=== PATIENT | female | born 1955 | race Two or more races ===

== ENCOUNTER 2019-07-11 13:29 | Emergency (ER) | payer OTHER ==
[~2019-07-11] VITALS: Ht 160 cm; Wt 70.8 kg
[2019-07-11 13:41] VITALS: BP 132/72
--- NOTE | 2019-07-11 13:56 | Emergency Room Report ---
History of Present Illness General Chief Complaint: Head Injury Source: Patient Present Illness HPI Patient is a 63-year-old female presents after being hit in the head with a soccer ball. She reports being dazed. Reports feeling somewhat confused after being hit to the head. Injury occurred approximately 2 hours prior to arrival. Denies any fall. She denies any loss of consciousness. Did not take anticoagulation. Has not vomiting or having any weakness to her extremities. Denies any neck pain. 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 Allergies: Coded Allergies: No Known Allergies (Unverified , 07/11/19) Patient History Past Medical History: see triage record Reviewed Nursing Documentation: PMH: Agreed; PSxH: Agreed Nursing Documentation-PMH Past Medical History: No History, Except For Hx Cardiac Problems: No Hx Hypertension: Yes Hx Pacemaker: No Hx Asthma: No Hx COPD: No Hx Diabetes: No Hx Cancer: No Hx Gastrointestinal Problems: No Hx Dialysis: No History Of Psychiatric Problem: No Hx Neurological Problems: No Hx Cerebrovascular Accident: No Hx Seizures: No Review of Systems All Other Systems: negative except mentioned in HPI Physical Exam Vital Signs Date Time Temp Pulse Resp B/P (MAP) Pulse Ox O2 Delivery O2 Flow Rate FiO2 07/11/19 13:41 98.1 79 16 132/72 (92) 99 Room Air General Appearance: well appearing, no apparent distress, alert, GCS 15 Head: normocephalic, atraumatic ENT: hearing grossly normal, normal pharynx, normal voice Neck: full range of motion, supple Respiratory: no respiratory distress, speaking full sentences Cardiovascular #1: normal inspection Gastrointestinal: normal inspection, soft Musculoskeletal: normal inspection, no calf tenderness Neurologic: alert, motor strength/tone normal, vehicle care specialist III-XII nml as tested, oriented x3, normal gait Psychiatric: normal inspection, mood/affect normal Skin: normal inspection, no rash Medical Decision Making ER Course Patient presented for minor head injury. Differential diagnosis includes is not limited to fracture, intracranial hemorrhage, contusion, among others. CT imaging was ordered due to patient's recent head injury. She is not currently taking any anticoagulation and is currently at her baseline mental status. She reports having taken ibuprofen for headache and does not have any headache at this time. Last Vital Signs Date Time Temp Pulse Resp B/P (MAP) Pulse Ox O2 Delivery O2 Flow Rate FiO2 07/11/19 13:41 98.1 79 16 132/72 (80) 99 Room Air Status: improved Disposition: HOME, SELF-CARE Condition: Stable Paul Lizama MD Jul 11, 2019 13:56
[2019-07-11] MEDS ORDERED: ONDANSETRON ODT4 MG BC (13:59)
--- NOTE | 2019-07-11 14:00 | NUR ---
ED Nurse Note: Patient presents to ER due to head injury; patient was standing in the soccer field and hit by soccer ball and lost consciouness for sec. Patient regained consciousness spontaneously. Patient reports no fall injury as she leaned against the pole and got to the ground. Reports no N/V or dizziness or changes in her speech or behavior. Patient awake, alert, oriented x 4. Regular, unlabored breathing noted. Ambulating to the room with steady gait.
[2019-07-11 14:10] VITALS: BP 134/75
--- NOTE | 2019-07-11 14:15 | NUR ---
ED Nurse Note: PATIENT IS BEING DISCHARGED FROM MEDICAL CARE. D/C INSTRUCTION AND PRESCRIPTION GIVEN TO PATIENT. ALL QUESTIONS WERE ANSWERED. PATIENT AMBULATED OUT WITH STEADY GAIT.
--- NOTE | 2019-07-11 14:40 | Diagnostic Imaging Report ---
Indication: Headache Technique: Contiguous 5 mm thick transaxial imaging of the head obtained in a Siem[employer] Sensation [address] scanner. Soft tissue and bone windows generated. Automatic Exposure Control was utilized. Total Dose length Product (DLP): 1300.[address] Dose Index Volume (CTDIvol): 62.7 mGy Comparison: none Findings: The size and configuration of the cortical sulci, basal cisterns, and ventricles are within normal limits for age. There is no mass effect, midline shift, or edema identified. There is no evidence of acute hemorrhage or abnormal intra-axial or extra-axial fluid collections. The bones and soft tissues are unremarkable. Impression: No mass effect, edema or acute bleed. The CT scanner at [facility] is accredited by the [employer] and the scans are performed using dose optimization techniques as appropriate to a performed exam including Automatic Exposure control.
== END 2019-07-11 15:30 | disposition home or self-care (01) ==
LOC: EMR 15:07
DX: S09.90XA Unspecified injury of head, initial encounter (principal); I10 Essential (primary) hypertension; W21.02XA Struck by soccer ball, initial encounter; Y93.66 Activity, soccer; Y92.219 Unspecified school as the place of occurrence of the external cause
CPT/HCPCS: 70450; 99284